=== PATIENT | female | born 1990 ===

== ENCOUNTER → 2018-03-05 | Outpatient (CLI) | payer OTHER ==
[~2018-03-05] MED LIST: PREN-127 PO
--- NOTE | 2018-03-05 11:29 | RADIOLOGY IMAGING REPORT ---
FACILITY: [facility] [place] PATIENT NAME: Jacque Meier : 1990 MR: [id number] V: [id number] EXAM DATE: ORDERING PHYSICIAN: LAURA TRAN TECHNOLOGIST: Location: [facility] Patient: Jacque Meier : 1990 Visit/Account:[id number] Date of Sevice: 03/05/2018 TRANSVAGINAL NON-OB HISTORY: IRREGULAR MENSTRUATION, UNSPECIFIED TECHNIQUE: Transvaginal ultrasound pelvis. COMPARISON: None. FINDINGS: Uterus: Anteverted; 7.2 cm length x 5.0 cm AP x 5.7 cm transverse. Myometrium: Intramural fibroid is seen, 2.7 x 2.7 x 3.9 cm. This is on the posterior slightly right of midline.. Endometrium: There is mild indentation at the fundus of the endometrial cavity; double thickness. 13 .6 mm. Cervix: Grossly negative. Ovaries: Right - 2.4 x 2.9 x 2.0 cm dominant follicle right ovary is seen, 0.9 cm. Left - 2.8 x 2.6 x 2.2 cm Blood flow is documented in each ovary by duplex Doppler ultrasound. Adnexa: Grossly unremarkable. Free pelvic fluid: None. IMPRESSION: 1. Small intramural fibroid, 3.9 cm. 2. Mild indenting at the fundal portion of the endometrial canal, consistent with arcuate uterus, no rmal variant. Report Dictated By: Uriah Aguirre at 03/05/2018 10:35 AM Report E-Signed By: Uriah Aguirre at 03/05/2018 11:24 AM WSN:[id number]
== END ==
LOC: RAD 08:51
PROVIDERS: ATTEND Obstetrics & Gynecology
DX: D25.1 Intramural leiomyoma of uterus (principal)
CPT/HCPCS: 76830

== ENCOUNTER → 2018-07-03 | Outpatient (CLI) | payer OTHER ==
[~2018-07-03] MED LIST changes: +FLUC150T40 PO; +METR-1 PO; +METR70GE2 PV
== END ==
LOC: LAB 13:31
PROVIDERS: ATTEND Obstetrics & Gynecology
DX: N89.8 Other specified noninflammatory disorders of vagina (principal)
CPT/HCPCS: 87210; 87491; 87591

== ENCOUNTER → 2018-07-22 | Outpatient (CLI) | payer OTHER | LOC: LAB 09:38 | PROVIDERS: ATTEND Obstetrics & Gynecology | DX: Z31.41 Encounter for fertility testing (principal) | CPT/HCPCS: 36415; 82670; 83001; 83002; 83520; 84146 ==